=== PATIENT | female | born 1975 | race Caucasian/White ===

== ENCOUNTER 2016-04-18 22:01 | Observation (INO) | payer OTHER ==
[2016-04-18] MEDS ORDERED: methylPREDNISolone SOD SUCCI 125 MG/2 ML VIAL IV STA (22:11)
[2016-04-18] MEDS ORDERED: diphenhydrAMINE 50 MG/ML 1 ML VIAL IVP STA ×2 (22:11→23:47)
[2016-04-18] MEDS ORDERED: FAMOTIDINE 20 MG/2 ML VIAL IV STA (22:11)
[2016-04-18] MEDS ORDERED: EPINEPHrine 1 MG/ML 1 ML AMP IV ONE (22:13)
[2016-04-18] MEDS ORDERED: IPRATROPIUM-ALBUTEROL 3 ML NEB INHALATION STA (22:14)
[2016-04-18] MEDS ORDERED: ALBUTEROL NEBULIZED 2.5 MG/3 ML INHALATION STA (22:23)
[2016-04-18] MEDS ORDERED: DEXAMETHASONE SOD PHOSPHATE 10 MG/ML 1 ML VIAL IV STA (22:26)
--- NOTE | 2016-04-18 22:29 | ED ---
General Adult HPI - General Chief complaint: Allergic Reaction Stated complaint: allergix rx Time Seen by Provider: 04/18/16 22:05 Source: patient, RN notes reviewed Mode of arrival: ambulatory Limitations: no limitations - History of Present Illness Initial comments: [place] 40-year-old female who presents emergency room today by EMS, with chief complaint of ALLERGIC reaction. Patient does have an ALLERGY to eggs. Unsure if she came into contact with this. Did give herself an EpiPen. EMS also gave updraft. Patient does admit to tongue swelling. Denies any difficulty swallowing. Does admit that she had a recent reaction which she was intubated. Patient currently denies any other complaints. Patient states symptoms started after one hour ago. Patient denies any recent fever, chills, shortness of breath, chest pain, back pain, abdominal pain, nausea or vomiting, numbness or tingling, dysuria or hematuria, constipation or diarrhea, headaches or visual changes, or any other complaints. - Related Data Home Medications Medication Instructions Recorded Confirmed Acetaminophen [Tylenol 8 Hour] 650 mg PO Q4H PRN 04/18/16 04/18/16 Buprenorphine HCl [Subutex] 4 mg SL DIRECTED 04/18/16 04/18/16 Calcium/Magnesium 1000mg/500mg 1 tab PO TID PRN 04/18/16 04/18/16 Chlorpheniramine Maleate 4 mg PO Q4H PRN 04/18/16 04/18/16 [Chlor-Trimeton] Gabapentin [Neurontin] 600 mg PO QID 04/18/16 04/18/16 Hyoscyamine Sulfate [Levsin-Sl] 0.125 mg SL QID PRN 04/18/16 04/18/16 Ibuprofen [Motrin] 600 mg PO Q6HR PRN 04/18/16 04/18/16 Insulin NPH Hum/Reg Insulin Hm 10 unit SQ BID@0600,2200 04/18/16 04/18/16 [Humulin 70/30 Kwikpen] Insulin Regular [HumuLIN R] See Protocol SQ ACHS 04/18/16 04/18/16 LORazepam [Ativan] 0.5 - 1 mg PO DIRECTED PRN MDD 04/18/16 04/18/16 SEE COMMENTS Loperamide [Imodium] 4 mg PO QID PRN 04/18/16 04/18/16 Multivitamins, Thera [Multivitamin] 1 tab PO DAILY 04/18/16 04/18/16 Ondansetron HCl [Zofran] 8 mg PO Q6H PRN 04/18/16 04/18/16 Ondansetron [Zofran] 4 mg IM Q6H PRN 04/18/16 04/18/16 Pantoprazole Sodium [Protonix] 20 mg PO DAILY@0600 04/18/16 04/18/16 Sucralfate [Carafate] 1 gm PO ACHS 04/18/16 04/18/16 Thiamine [Vitamin B-1] 100 mg PO DAILY 04/18/16 04/18/16 Trimethobenzamide [Tigan] 200 mg IM Q6HR PRN 04/18/16 04/18/16 Trimethobenzamide [Tigan] 300 mg PO Q6H PRN 04/18/16 04/18/16 busPIRone HCl [Buspar] 10 mg PO TID PRN 04/18/16 04/18/16 cloNIDine HCL [Catapres] 0.1 mg PO BID@0600,1730 04/18/16 04/18/16 traZODone HCL 300 mg PO HS@2200 04/18/16 04/18/16 Allergies Allergy/AdvReac Type Severity Reaction Status Date / Time egg Allergy Severe Swelling Verified 04/18/16 22:25 ciprofloxacin [From Cipro] Allergy Unknown Verified 04/18/16 22:25 Fish Containing Products Allergy Unknown Verified 04/18/16 22:25 [Fish] prochlorperazine Allergy Unknown Verified 04/18/16 22:25 [From Compazine] Review of Systems ROS Statement: Those systems with pertinent positive or pertinent negative responses have been documented in the HPI. ROS Other: All systems not noted in ROS Statement are negative. Past Medical History Past Medical History: Diabetes Mellitus, Hypertension Additional Past Medical History / Comment(s): Opiate dependence History of Any Multi-Drug Resistant Organisms: None Reported Past Surgical History: Unable to Obtain Past Psychological History: No Psychological Hx Reported Smoking Status: Never smoker Past Alcohol Use History: None Reported Past Drug Use History: Opiates, Prescription Drug Abuse General Exam - General Exam Comments Initial Comments: General: The patient is awake and alert, in mild distress. Eye: Pupils are equal, round and reactive to light, extra-ocular movements are intact. No nystagmus. There is normal conjunctiva bilaterally. No signs of icterus. Ears, nose, mouth and throat: There are moist mucous membranes and no oral lesions. Moderate swelling. holding Secretions and able to swallow. Neck: The neck is supple, there is no tenderness or JVD. Cardiovascular: There is a regular rate and rhythm. No murmur, rub or gallop is appreciated. Respiratory: Lungs are clear to auscultation, respirations are non-labored, breath sounds are equal. No wheezes, stridor, rales, or rhonchi. Gastrointestinal: Soft, non-distended, non-tender abdomen without masses or organomegaly noted. There is no rebound or guarding present. No CVA tenderness. Musculoskeletal: Normal ROM, no tenderness. Strength 5/5. Sensation intact. Pulses equal bilaterally 2+. Neurological: A&O x 3. CN II-XII intact, There are no obvious motor or sensory deficits. Coordination appears grossly intact. Speech is normal. Skin: Skin is warm and dry and no rashes or lesions are noted. Psychiatric: Cooperative, appropriate mood & affect, normal judgment. Limitations: no limitations Course Vital Signs 04/18/16 04/18/16 04/18/16 22:05 22:20 22:24 Temperature 98 F Pulse Rate 125 H 121 H 120 H Respiratory 24 20 Rate Blood Pressure 150/84 157/85 O2 Sat by Pulse 100 100 Oximetry 04/18/16 04/18/16 04/18/16 22:35 22:37 22:48 Temperature Pulse Rate 113 H 117 H 113 H Respiratory 18 20 Rate Blood Pressure 154/73 128/63 O2 Sat by Pulse 100 97 Oximetry - Reevaluation(s) Reevaluation #1: 04/18/16 22:15 Patient seen here in the emergency room does show moderate distress with moderate swelling. Case discussed and seen by attending Dr at bedside Dr Springer. 04/18/16 22:25 Patient received a dose of epinephrine along with IV Solu-Medrol, Pepcid, Benadryl. Symptoms improving. Patient will be monitored closely. 04/18/16 22:37 Patient reexamined at this time shows no signs of distress. Nursing staff and respiratory at bedside currently on breathing treatment. Patient admits symptoms same but not progressing. Vitals Stable. 04/18/16 23:42 Patient reexamined at this time shows no signs of distress. Resting comfortably. Vitals stable. Patient will be admitted to Obs for continued monitoring. Disposition Clinical Impression: Allergic reaction Disposition: ADMITTED IP TO THIS HOSP Condition: Stable Referrals: None,Stated [Primary Care Provider] - 1-2 days Time of Disposition: 23:45
[2016-04-18] MEDS ORDERED: NALOXONE 0.4 MG/ML 1 ML VIAL IV PRN (23:46)
[2016-04-18] MEDS ORDERED: SODIUM CHLORIDE 0.9% 1,000 ML IV ONE (23:46)
[2016-04-18] MEDS ORDERED: EPINEPHrine 1 MG/ML 1 ML AMP SQ PRN (23:49)
[2016-04-19 00:20] VITALS: RESP 18; TEMP 97.7
[2016-04-19 07:29] LABS: Glucose,Whole Blood 151 mg/dL (75-99)
[2016-04-19 08:38] VITALS: BP 130/80; PULSE 116
[2016-04-19] MEDS ORDERED: FAMOTIDINE 20 MG/2 ML VIAL IV SCH (09:00)
[2016-04-19] MEDS ORDERED: predniSONE 50 MG TAB PO SCH (09:00)
[2016-04-19 09:47] LABS: Basophils % (A) 0 %; CH 24.9; CHCM 26.8; Eosinophils % (A) 0 %; HCT 34.1 % (34.0-46.0); HDW 2.85; HGB 9.4 gm/dL (11.4-16.0); Hypochromasia Marked; Luc # (Auto) 0.03; Luc % (Auto) 0; Lymphocytes # (A) 0.5 k/uL (1.0-4.8); Lymphocytes % (A) 4 %; MCH 25.7 pg (25.0-35.0); MCV 92.9 fL (80.0-100.0); Monocytes # (A) 0.2 k/uL (0-1.0); Monocytes % (A) 2 %; Neutrophils # (A) 11.3 k/uL (1.3-7.7); Neutrophils % (A) 94 %; RBC 3.67 m/uL (3.80-5.40); RDW 14.7 % (11.5-15.5); WBC 12.1 k/uL (3.8-10.6); WBC (Perox) 12.21
[2016-04-19 10:05] LABS: MCHC 27.7 g/dL (31.0-37.0)
[2016-04-19 10:09] LABS: Anion Gap 16 mmol/L; Blood Urea Nitrogen 10 mg/dL (7-17); Calcium 8.8 mg/dL (8.4-10.2); Carbon Dioxide 21 mmol/L (22-30); Chloride 104 mmol/L (98-107); Glucose 240 mg/dL (74-99); Non-African American GFR(MDRD) >60 (>60 ml/min/1.73 sqM); Sodium 141 mmol/L (137-145)
--- NOTE | 2016-04-19 10:57 | P.DS ---
Providers Date of admission: 04/19/16 00:05 Expected date of discharge: 04/19/16 Attending physician: Prashant Kaiser Primary care physician: Stated None Hospital Course: 40-year-old female who presented via the EMS system with a chief complaint of developing ALLERGIC reaction. Patient is not certain what she came into contact with that she did use an EpiPen patient is being treated at [facility] for opiate substance abuse according to the patient she ate something she was not sure patient was given an updraft by the emergency room. Patient stated her tongue swell. There was no difficulty in swallowing. Patient states that according to history she had a recent reaction similar but was intubated. Patient's symptoms resolved patient was given a dose of epinephrine in the emergency room along with IV Solu-Medrol Pepcid and Benadryl the symptoms improved patient was monitored closely admitted to the services of the attending where she continued to be monitored and on the morning of the the patient was felt to be stable back to baseline could be transferred back for further treatment at [facility] Impression discharge diagnosis Acute symptomatic ALLERGIC reaction present on admission ALLERGIC reaction to eggs History of opiate prescription drug abuse abuse The above dictated assessment and findings were discussed with dr kaiser . Impression and the plan of care have been dictated as directed. Leisa Osorio nurse practitioner acting as a scribe for dr kaiser Patient Condition at Discharge: Stable Plan - Discharge Summary Discharge Medication List Acetaminophen [Tylenol 8 Hour] 650 mg PO Q4H PRN 04/18/16 [History] Buprenorphine HCl [Subutex] 4 mg SL DIRECTED 04/18/16 [History] Calcium/Magnesium 1000mg/500mg 1 tab PO TID PRN 04/18/16 [History] Chlorpheniramine Maleate [Chlor-Trimeton] 4 mg PO Q4H PRN 04/18/16 [History] Gabapentin [Neurontin] 600 mg PO QID 04/18/16 [History] Hyoscyamine Sulfate [Levsin-Sl] 0.125 mg SL QID PRN 04/18/16 [History] Ibuprofen [Motrin] 600 mg PO Q6HR PRN 04/18/16 [History] Insulin NPH Hum/Reg Insulin Hm [humuLIN 70/30 Kwikpen] 10 unit SQ BID@0600,2200 04/18/16 [History] Insulin Regular [humuLIN R] See Protocol SQ ACHS 04/18/16 [History] LORazepam [Ativan] 0.5 - 1 mg PO DIRECTED PRN MDD SEE COMMENTS 04/18/16 [ History] Loperamide [Imodium] 4 mg PO QID PRN 04/18/16 [History] Multivitamins, Thera [Multivitamin] 1 tab PO DAILY 04/18/16 [History] Ondansetron HCl [Zofran] 8 mg PO Q6H PRN 04/18/16 [History] Ondansetron [Zofran] 4 mg IM Q6H PRN 04/18/16 [History] Pantoprazole Sodium [Protonix] 20 mg PO DAILY@0600 04/18/16 [History] Sucralfate [Carafate] 1 gm PO ACHS 04/18/16 [History] Thiamine [Vitamin B-1] 100 mg PO DAILY 04/18/16 [History] Trimethobenzamide [Tigan] 200 mg IM Q6HR PRN 04/18/16 [History] Trimethobenzamide [Tigan] 300 mg PO Q6H PRN 04/18/16 [History] busPIRone HCl [Buspar] 10 mg PO TID PRN 04/18/16 [History] cloNIDine HCL [Catapres] 0.1 mg PO BID@0600,1730 04/18/16 [History] traZODone HCL 300 mg PO HS@2200 04/18/16 [History] Follow up Appointment(s)/Referral(s): None,Stated [Primary Care Provider] - 1-2 days Prashant Kaiser MD [STAFF PHYSICIAN] - 1 Week Activity/Diet/Wound Care/Special Instructions: Patient is to return to [facility] Discharge Disposition: OTHER INSTITUTION NOT DEFINED
[2016-04-19 12:08] LABS: Glucose,Whole Blood 206 mg/dL (75-99)
--- NOTE | 2016-04-19 14:12 | HP ---
DATE OF ADMISSION: CHIEF COMPLAINT: Allergic reaction. HISTORY OF PRESENT ILLNESS: This is the first known admission for this 40-year-old G2, P2, A0 white female. She is allergic to EGGS. She has known this for some time. She was eating something that probably contained EGG and she came to the emergency room with angioneurotic edema. She was treated with steroids and antihistamines and is doing fairly well. REVIEW OF SYSTEMS: She has had no other complaints or problems. Past medical history, family history, and personal and social histories reveal that she is on insulin for her diabetes and has it fairly well under control. She is allergic to CIPRO and COMPAZINE. Surgically, she has had an appendectomy, two C-sections and a cholecystectomy. She does not smoke. PHYSICAL EXAMINATION: Blood pressure 135/82 with a pulse of 73, respirations of 35 and she is afebrile. GENERAL: She appeared to be well developed, well nourished, in no acute distress. Skin color is normal. Skin is warm and dry. Lymph nodes are not enlarged. Head, ears, eyes, nose, mouth, and throat were normal. Neck veins not distended. Thyroid is not enlarged. Chest is clear. Cardiac exam is normal. ABDOMEN: Soft, nontender. EXTREMITIES: Normal. NEUROLOGICAL: She is intact. IMPRESSION: 1. Angioneurotic edema secondary to ingestion of EGG. 2. Insulin-dependent diabetes mellitus. 3. Prescription drug addiction PLAN: 1. Bed rest. 2. IV fluids. 3. Steroids and antihistamines. 4. Probably home later today as arranged by the nurse practitioner. She wants to go to [place]. It is not clear if she came from [place] or not.
[2016-04-20] MEDS ORDERED: FAMOTIDINE 20 MG TAB PO SCH (09:00)
== END 2016-04-19 14:24 | disposition other institution (70) ==
LOC: EC 22:01 → 4MS4W 04-19 00:05
PROVIDERS: ADMIT Family Medicine; ATTEND Family Medicine
DX: T78.3XXA Angioneurotic edema, initial encounter (principal); Z91.012 Allergy to eggs; I10 Essential (primary) hypertension; E11.9 Type 2 diabetes mellitus without complications; F19.20 Other psychoactive substance dependence, uncomplicated; Z79.899 Other long term (current) drug therapy; Z79.4 Long term (current) use of insulin; Z88.8 Allergy status to other drugs, medicaments and biological substances; Z88.1 Allergy status to other antibiotic agents; Z91.013 Allergy to seafood
CPT/HCPCS: 94640; 80048; 85025; 96374; 96376; 96375 ×4; 99285; G0378; J0171; J1200 ×2; J1100; J2930; J7512

== ENCOUNTER 2016-04-19 22:40 | Observation (INO) | payer OTHER ==
[2016-04-19] MEDS ORDERED: FAMOTIDINE 20 MG/2 ML VIAL IV STA (22:53)
[2016-04-19] MEDS ORDERED: EPINEPHrine 1 MG/ML 1 ML AMP IM STA (22:57)
--- NOTE | 2016-04-19 23:03 | ED ---
Allergic Reaction HPI - General Stated complaint: poss allergic reaction Time Seen by Provider: 04/19/16 22:47 Source: RN notes reviewed - History of Present Illness Initial Comments: Patient is a 40-year-old female with chief complaint of an ALLERGIC reaction to this neck that she ate well at [facility]. Patient reports that she was treated in emergency department for a similar episode yesterday and was admitted. She was discharges morning.. Patient reports that she ate a turkey sandwich with miracle upon it. Patient reports that she is ALLERGIC to eggs. Patient did not realize that they're eggs in any kind of miracle whip or mayonnaise condiment. Patient reports that shortly thereafter she started developing a rash in her tongue started to swell. She states that she initially gave herself 1 her EpiPen injection in her leg. EMS arrived and to give the patient 100 mg of Benadryl and at 125 Solu-Medrol. They report that patient's redness and itching is somewhat subsided after getting the medications. Patient reports that her tongue is still feeling somewhat swollen. Causing her having difficulty talking. She states that each time that she's had an exposure days as he came much worse. She reports that she had a be intubated approximately one month ago for similar reaction. - Related Data Home Medications Medication Instructions Recorded Confirmed Acetaminophen [Tylenol 8 Hour] 650 mg PO Q4H PRN 04/18/16 04/18/16 Buprenorphine HCl [Subutex] 4 mg SL DIRECTED 04/18/16 04/18/16 Calcium/Magnesium 1000mg/500mg 1 tab PO TID PRN 04/18/16 04/18/16 Chlorpheniramine Maleate 4 mg PO Q4H PRN 04/18/16 04/18/16 [Chlor-Trimeton] Gabapentin [Neurontin] 600 mg PO QID 04/18/16 04/18/16 Hyoscyamine Sulfate [Levsin-Sl] 0.125 mg SL QID PRN 04/18/16 04/18/16 Ibuprofen [Motrin] 600 mg PO Q6HR PRN 04/18/16 04/18/16 Insulin NPH Hum/Reg Insulin Hm 10 unit SQ BID@0600,2200 04/18/16 04/18/16 [humuLIN 70/30 Kwikpen] Insulin Regular [humuLIN R] See Protocol SQ ACHS 04/18/16 04/18/16 LORazepam [Ativan] 0.5 - 1 mg PO DIRECTED PRN MDD 04/18/16 04/18/16 SEE COMMENTS Loperamide [Imodium] 4 mg PO QID PRN 04/18/16 04/18/16 Multivitamins, Thera [Multivitamin] 1 tab PO DAILY 04/18/16 04/18/16 Ondansetron HCl [Zofran] 8 mg PO Q6H PRN 04/18/16 04/18/16 Ondansetron [Zofran] 4 mg IM Q6H PRN 04/18/16 04/18/16 Pantoprazole Sodium [Protonix] 20 mg PO DAILY@0600 04/18/16 04/18/16 Sucralfate [Carafate] 1 gm PO [facility] 04/18/16 04/18/16 Thiamine [Vitamin B-1] 100 mg PO DAILY 04/18/16 04/18/16 Trimethobenzamide [Tigan] 200 mg IM Q6HR PRN 04/18/16 04/18/16 Trimethobenzamide [Tigan] 300 mg PO Q6H PRN 04/18/16 04/18/16 busPIRone HCl [Buspar] 10 mg PO TID PRN 04/18/16 04/18/16 cloNIDine HCL [Catapres] 0.1 mg PO BID@0600,1730 04/18/16 04/18/16 traZODone HCL 300 mg PO HS@2200 04/18/16 04/18/16 Allergies Allergy/AdvReac Type Severity Reaction Status Date / Time egg Allergy Severe Swelling Verified 04/18/16 22:25 ciprofloxacin [From Cipro] Allergy Unknown Verified 04/18/16 22:25 Fish Containing Products Allergy Unknown Verified 04/18/16 22:25 [Fish] prochlorperazine Allergy Unknown Verified 04/18/16 22:25 [From Compazine] Review of Systems ROS Statement: Those systems with pertinent positive or pertinent negative responses have been documented in the HPI. ROS Other: All systems not noted in ROS Statement are negative. Past Medical History Past Medical History: Diabetes Mellitus, Hypertension Additional Past Medical History / Comment(s): Opiate dependence History of Any Multi-Drug Resistant Organisms: None Reported Past Surgical History: Unable to Obtain Past Psychological History: No Psychological Hx Reported Smoking Status: Never smoker Past Alcohol Use History: None Reported Past Drug Use History: Opiates, Prescription Drug Abuse - Past Family History Mother History Unknown: Yes Family Medical History: No Reported History General Exam General appearance: alert, in no apparent distress Head exam: Present: atraumatic, normocephalic, normal inspection Eye exam: Present: normal appearance, PERRL, EOMI. Absent: scleral icterus, conjunctival injection, periorbital swelling ENT exam: Present: normal exam, mucous membranes moist, TM's normal bilaterally. Absent: normal oropharynx (Patient has evidence of swollen tongue. ) Neck exam: Present: normal inspection. Absent: tenderness, meningismus, lymphadenopathy Respiratory exam: Present: normal lung sounds bilaterally. Absent: respiratory distress, wheezes, rales, rhonchi, stridor Cardiovascular Exam: Present: regular rate, normal rhythm, normal heart sounds. Absent: systolic murmur, diastolic murmur, rubs, gallop, clicks GI/Abdominal exam: Present: soft, normal bowel sounds. Absent: distended, tenderness, guarding, rebound, rigid Extremities exam: Present: normal inspection, full ROM, normal capillary refill. Absent: tenderness, pedal edema, joint swelling, calf tenderness Back exam: Present: normal inspection Neurological exam: Present: alert, oriented X3, CN II-XII intact Psychiatric exam: Present: normal affect, normal mood Skin exam: Present: warm, dry, intact, normal color, erythema (Patient's chest has diffuse wheals and is erythematous. Patient scratching her skin.). Absent : rash Course Vital Signs 04/19/16 23:32 Temperature 97.6 F Pulse Rate 125 H Respiratory 20 Rate Blood Pressure 144/76 O2 Sat by Pulse 95 Oximetry - Reevaluation(s) Reevaluation #1: 04/19/16 23:21 Patient was reevaluated at this time is stating that she is feeling itchy. Medical Decision Making - Medical Decision Making Patient is a 40-year-old female with chief complaint of ALLERGIC reaction after ingesting a sandwich with [place]. Patient was admitted yesterday for similar reaction. She reports that she's been intubated in the past. Patient arrives to the emergency department after dose of IM epinephrine, and EMS did dose IV Solu-Medrol and Benadryl. Patient arrives to the emergency department and EMS states that she her redness has subsided. Patient has no wheezing at this time. She does have significant swelling of the tongue. Patient was given a subsequent dose of epinephrine and Pepcid in the emergency department. Patient will be admitted at this time for significant tongue swelling and monitoring. Patient will continue to do Benadryl via IV. I discussed with the patient that she needs to be very diligent about any food that she ingested could possibly be made with aches. Patient agrees to treatment plan. Disposition Clinical Impression: Allergic reaction Disposition: ADMITTED IP TO THIS HOSP Condition: Stable Referrals: None,Stated [Primary Care Provider] - 1-2 days Time of Disposition: 23:49
[2016-04-19] MEDS ORDERED: NALOXONE 0.4 MG/ML 1 ML VIAL IV PRN (23:49)
[2016-04-19] MEDS ORDERED: EPINEPHrine 1 MG/ML 1 ML AMP SQ PRN (23:55)
[2016-04-19] MEDS: SODIUM CHLORIDE 0.9% 1,000 ML IV SCH (23:55)
[2016-04-20 01:11] LABS: Glucose,Whole Blood 149 mg/dL (75-99)
[2016-04-20] MEDS: diphenhydrAMINE 50 MG/ML 1 ML VIAL IVP SCH ×4 (01:13→18:11)
[2016-04-20 01:32] VITALS: BMI 23.3
[2016-04-20 07:53] LABS: Glucose,Whole Blood 149 mg/dL (75-99)
[2016-04-20] MEDS: SODIUM CHLORIDE 0.9% 1,000 ML IV SCH ×2 (08:38→18:10)
[2016-04-20] MEDS: FAMOTIDINE 20 MG TAB PO SCH ×2 (08:39→21:41)
[2016-04-20 12:05] LABS: Glucose,Whole Blood 131 mg/dL (75-99)
[2016-04-20 17:16] LABS: Glucose,Whole Blood 126 mg/dL (75-99)
--- NOTE | 2016-04-20 18:32 | HP ---
DATE OF ADMISSION: 04/20/2016 CHIEF COMPLAINT: Repeat allergic reaction. HISTORY OF PRESENT ILLNESS: This 40-year-old white female left the hospital, went home or back to [place] immediately something was ( ) with it again and restarted her angioneurotic edema. She was brought to the hospital and is doing better. REVIEW OF SYSTEMS: Otherwise unremarkable. Past medical history, family history, and personal and social histories are all otherwise unremarkable or unchanged. PHYSICAL EXAMINATION: VITAL SIGNS: All of her vital signs are normal. She is awake and alert. She has no rash, urticaria or angioneurotic edema. HEENT: Head, ears, eyes, mouth, and throat are normal. CHEST: Clear. CARDIAC: Normal. ABDOMEN: Soft, nontender. EXTREMITIES: Normal. IMPRESSION: Angioneurotic edema to eggs. PLAN: Steroids and antihistamines until she is stable enough to go back to [place].
[2016-04-20] MEDS ORDERED: LOPERAMIDE 2 MG CAP PO PRN (20:03)
[2016-04-20] MEDS ORDERED: busPIRone HCl 10 MG TAB PO PRN (20:03)
[2016-04-20] MEDS ORDERED: ACETAMINOPHEN TAB 325 MG TAB PO PRN (20:03)
[2016-04-20] MEDS ORDERED: ONDANSETRON 4 MG/2 ML VIAL IM PRN (20:03)
[2016-04-20] MEDS ORDERED: LORazepam 1 MG TAB PO PRN (20:03)
[2016-04-20] MEDS ORDERED: IBUPROFEN 600 MG TAB PO PRN (20:03)
[2016-04-20] MEDS ORDERED: NON-FORMULARY DRUG (Calcium/Magnesium 1000mg/500mg 1 TAB) PO PRN (20:03)
[2016-04-20 21:22] LABS: Glucose,Whole Blood 96 mg/dL (75-99)
[2016-04-20] MEDS: SUCRALFATE 1 GM TAB PO SCH (21:41)
[2016-04-20] MEDS: INSULIN LISPRO (humaLOG) 300 UNIT/3 ML VIAL SQ SCH (21:41)
[2016-04-20] MEDS: GABAPENTIN 300 MG CAP PO SCH (21:41)
[2016-04-21] MEDS: diphenhydrAMINE 50 MG/ML 1 ML VIAL IVP SCH ×4 (00:21→17:02)
[2016-04-21] MEDS: SODIUM CHLORIDE 0.9% 1,000 ML IV SCH ×3 (00:22→20:34)
[2016-04-21] MEDS: LORazepam 0.5 MG TAB PO PRN ×2 (01:36→20:41)
[2016-04-21] MEDS: PANTOPRAZOLE 40 MG TABLET PO SCH (06:33)
[2016-04-21] MEDS: cloNIDine HCL 0.1 MG TAB PO SCH ×2 (06:33→17:02)
[2016-04-21 07:10] LABS: Glucose,Whole Blood 89 mg/dL (75-99)
[2016-04-21] MEDS: SUCRALFATE 1 GM TAB PO SCH ×4 (08:01→20:33)
[2016-04-21] MEDS: INSULIN LISPRO (humaLOG) 300 UNIT/3 ML VIAL SQ SCH ×4 (08:01→20:35)
[2016-04-21] MEDS: FAMOTIDINE 20 MG TAB PO SCH ×2 (08:01→20:33)
[2016-04-21] MEDS: GABAPENTIN 300 MG CAP PO SCH ×4 (08:01→20:33)
[2016-04-21 10:53] LABS: Hemoglobin A1C 5.5 % (4.2-6.1)
[2016-04-21] MEDS: THIAMINE 100 MG TAB PO SCH (11:45)
[2016-04-21] MEDS: MULTIVITAMINS, THERA 1 EACH TAB PO SCH (11:45)
[2016-04-21 11:56] LABS: Glucose,Whole Blood 125 mg/dL (75-99)
[2016-04-21] MEDS: predniSONE 20 MG TAB PO SCH ×2 (16:56→20:34)
[2016-04-21 16:59] LABS: Glucose,Whole Blood 71 mg/dL (75-99)
[2016-04-21 20:25] LABS: Glucose,Whole Blood 136 mg/dL (75-99)
--- NOTE | 2016-04-21 22:36 | PN ---
CHIEF COMPLAINT: Angina and neurotic edema. HISTORY OF PRESENT ILLNESS: This patient started to get a few more hives, itching but other than that she is doing well. PHYSICAL EXAMINATION: CHEST: Clear. CARDIAC: Normal. ABDOMEN: Soft, nontender. IMPRESSION: Angioneurotic edema. PLAN: Probably back to [place] tomorrow.
[2016-04-22] MEDS: diphenhydrAMINE 50 MG CAP PO PRN ×2 (00:49→10:11)
[2016-04-22] MEDS: LORazepam 1 MG TAB PO PRN ×2 (03:45→10:36)
[2016-04-22] MEDS: cloNIDine HCL 0.1 MG TAB PO SCH (06:34)
[2016-04-22] MEDS: PANTOPRAZOLE 40 MG TABLET PO SCH (06:34)
[2016-04-22 07:36] LABS: Glucose,Whole Blood 110 mg/dL (75-99)
[2016-04-22] MEDS: INSULIN LISPRO (humaLOG) 300 UNIT/3 ML VIAL SQ SCH ×2 (07:41→13:40)
[2016-04-22] MEDS: GABAPENTIN 300 MG CAP PO SCH ×2 (07:42→12:10)
[2016-04-22] MEDS: FAMOTIDINE 20 MG TAB PO SCH (07:43)
[2016-04-22] MEDS: predniSONE 20 MG TAB PO SCH (07:43)
[2016-04-22] MEDS: SUCRALFATE 1 GM TAB PO SCH ×2 (07:43→12:10)
[2016-04-22 08:43] VITALS: BP 124/70; PULSE 87; RESP 19; TEMP 97.3
--- NOTE | 2016-04-22 11:26 | P.DS ---
Providers Date of admission: 04/20/16 00:15 Expected date of discharge: 04/22/16 Attending physician: Prashant Kaiser Primary care physician: Stated None Hospital Course: patient is a 40-year-old female with chief complaint of an ALLERGIC reaction to egg that she ate well at [facility] facility. Patient reports that she was treated in emergency department for a similar episode yesterday and was admitted. She was discharges morning.. Patient reports that she ate a turkey sandwich with miracle upon it. Patient reports that she is ALLERGIC to eggs. Patient did not realize that they're eggs in any kind of miracle whip or mayonnaise condiment. Patient reports that shortly thereafter she started developing a rash in her tongue started to swell. She states that she initially gave herself 1 her EpiPen injection in her leg. EMS arrived and to give the patient 100 mg of Benadryl and at 125 Solu-Medrol. They report that patient's redness and itching is somewhat subsided after getting the medications. Patient reports that her tongue is still feeling somewhat swollen. Causing her having difficulty talking. She states that each time that she's had an exposure days as he came much worse. She reports that she had a be intubated approximately one month ago for similar reaction. Patient was seen in the morning of the was felt to be medically stable and appropriate proceed with a discharge to home. With stress to the patient to avoid eating eggs patient is to be transferred back to [facility] patient had been counseled at length about being very diligent to avoid any foods that she eats that could possibly have eggs Impression discharge diagnosis No ALLERGIC reaction to eggs History of an ALLERGY to eggs Acute symptomatic ALLERGIC response to an egg product present on admission swollen tongue History of opiate prescription drug abuse currently at [facility] for treatment Reoccurring episode of ALLERGIC reaction to egg just discharged on April 19 returned same day after eating a product that had eggs in it The above dictated assessment and findings were discussed with dr awilda Connelly and the plan of care have been dictated as directed. Leisa Osorio nurse practitioner acting as a scribe for dr kaiser Patient Condition at Discharge: Stable Plan - Discharge Summary Discharge Medication List Acetaminophen [Tylenol 8 Hour] 650 mg PO Q4H PRN 04/18/16 [History] Buprenorphine HCl [Subutex] 4 mg SL DIRECTED 04/18/16 [History] Calcium/Magnesium 1000mg/500mg 1 tab PO TID PRN 04/18/16 [History] Chlorpheniramine Maleate [Chlor-Trimeton] 4 mg PO Q4H PRN 04/18/16 [History] Gabapentin [Neurontin] 600 mg PO QID 04/18/16 [History] Hyoscyamine Sulfate [Levsin-Sl] 0.125 mg SL QID PRN 04/18/16 [History] Ibuprofen [Motrin] 600 mg PO Q6HR PRN 04/18/16 [History] Insulin NPH Hum/Reg Insulin Hm [humuLIN 70/30 Kwikpen] 10 unit SQ BID@0600,2200 04/18/16 [History] Insulin Regular [humuLIN R] See Protocol SQ ACHS 04/18/16 [History] LORazepam [Ativan] 0.5 - 1 mg PO DIRECTED PRN MDD SEE COMMENTS 04/18/16 [ History] Loperamide [Imodium] 4 mg PO QID PRN 04/18/16 [History] Multivitamins, Thera [Multivitamin] 1 tab PO DAILY 04/18/16 [History] Ondansetron HCl [Zofran] 8 mg PO Q6H PRN 04/18/16 [History] Ondansetron [Zofran] 4 mg IM Q6H PRN 04/18/16 [History] Pantoprazole Sodium [Protonix] 20 mg PO DAILY@0600 04/18/16 [History] Sucralfate [Carafate] 1 gm PO ACHS 04/18/16 [History] Thiamine [Vitamin B-1] 100 mg PO DAILY 04/18/16 [History] Trimethobenzamide [Tigan] 200 mg IM Q6HR PRN 04/18/16 [History] Trimethobenzamide [Tigan] 300 mg PO Q6H PRN 04/18/16 [History] busPIRone HCl [Buspar] 10 mg PO TID PRN 04/18/16 [History] cloNIDine HCL [Catapres] 0.1 mg PO BID@0600,1730 04/18/16 [History] traZODone HCL 300 mg PO HS@2200 04/18/16 [History] Follow up Appointment(s)/Referral(s): None,Stated [Primary Care Provider] - 1-2 days [place],Prashant G, MD [STAFF PHYSICIAN] - 1 Week Activity/Diet/Wound Care/Special Instructions: To return to [facility] for continued treatment Avoid foods that have eggs Discharge Disposition: OTHER INSTITUTION NOT DEFINED
[2016-04-22] MEDS: THIAMINE 100 MG TAB PO SCH (12:10)
[2016-04-22] MEDS: MULTIVITAMINS, THERA 1 EACH TAB PO SCH (12:10)
[2016-04-22 12:25] LABS: Glucose,Whole Blood 122 mg/dL (75-99)
--- NOTE | 2016-04-22 14:48 | PN ---
CHIEF COMPLAINT: Food allergy to egg with anaphylactic reaction. HISTORY OF PRESENT ILLNESS: This lady is doing well and she has had no problems and she will go back to [place] today. PHYSICAL EXAM: Skin is clear and the chest is clear. Cardiac exam is normal. IMPRESSION: Angioneurotic edema secondary to ingestion of egg. She will go back to [place] Today and this will be arranged by the nurse practitioner.
== END 2016-04-22 15:20 ==
LOC: EC 22:40 → 4MS4W 04-20 00:15
PROVIDERS: ADMIT Family Medicine; ATTEND Family Medicine
DX: T78.3XXA Angioneurotic edema, initial encounter (principal); T78.08XA Anaphylactic reaction due to eggs, initial encounter; Z91.012 Allergy to eggs; E11.9 Type 2 diabetes mellitus without complications; I10 Essential (primary) hypertension; Z79.899 Other long term (current) drug therapy; Z79.4 Long term (current) use of insulin; Z88.8 Allergy status to other drugs, medicaments and biological substances; Z88.1 Allergy status to other antibiotic agents; Z91.013 Allergy to seafood
CPT/HCPCS: 83036; 96374; 96372; 96361; 99285; G0378 ×3; J0171; J1200 ×2; J7512 ×2; 96375; 96376

== ENCOUNTER 2016-04-22 23:16 | Observation (INO) | payer OTHER ==
[2016-04-22] MEDS ORDERED: FAMOTIDINE 20 MG/2 ML VIAL IV STA (23:39)
[2016-04-22] MEDS ORDERED: diphenhydrAMINE 50 MG/ML 1 ML VIAL IVP STA (23:39)
[2016-04-22] MEDS ORDERED: SODIUM CHLORIDE 0.9% 1,000 ML IV STA ×2 (23:39)
--- NOTE | 2016-04-23 01:00 | ED ---
Allergic Reaction HPI - General Chief complaint: Allergic Reaction Stated complaint: Allergic Reaction Time Seen by Provider: 04/22/16 23:23 Source: patient Mode of arrival: ambulatory Limitations: no limitations - History of Present Illness Initial Comments: Noticed ALLERGIC reaction today she does have a history of ALLERGIC reaction past she noticed her tongue was swollen and large she was also short winded. Some tightening in the throat also noticed some hives all over his quite itchy as well. She does have EpiPen prescription she gave herself a Shot and then in the ambulance she had Benadryl IV and Solu-Medrol by the time she arrived ER her symptoms have a large extent on the tongue was still swollen and she is bit short winded. No other complaints - Related Data Home Medications Medication Instructions Recorded Confirmed Acetaminophen [Tylenol 8 Hour] 650 mg PO Q4H PRN 04/18/16 04/20/16 Buprenorphine HCl [Subutex] 4 mg SL DIRECTED 04/18/16 04/20/16 Calcium/Magnesium 1000mg/500mg 1 tab PO TID PRN 04/18/16 04/20/16 Chlorpheniramine Maleate 4 mg PO Q4H PRN 04/18/16 04/20/16 [Chlor-Trimeton] Gabapentin [Neurontin] 600 mg PO QID 04/18/16 04/20/16 Hyoscyamine Sulfate [Levsin-Sl] 0.125 mg SL QID PRN 04/18/16 04/20/16 Ibuprofen [Motrin] 600 mg PO Q6HR PRN 04/18/16 04/20/16 Insulin NPH Hum/Reg Insulin Hm 10 unit SQ BID@0600,2200 04/18/16 04/20/16 [humuLIN 70/30 Kwikpen] Insulin Regular [humuLIN R] See Protocol SQ ACHS 04/18/16 04/20/16 LORazepam [Ativan] 0.5 - 1 mg PO DIRECTED PRN MDD 04/18/16 04/20/16 SEE COMMENTS Loperamide [Imodium] 4 mg PO QID PRN 04/18/16 04/20/16 Multivitamins, Thera [Multivitamin] 1 tab PO DAILY 04/18/16 04/20/16 Ondansetron HCl [Zofran] 8 mg PO Q6H PRN 04/18/16 04/20/16 Ondansetron [Zofran] 4 mg IM Q6H PRN 04/18/16 04/20/16 Pantoprazole Sodium [Protonix] 20 mg PO DAILY@0600 04/18/16 04/20/16 Sucralfate [Carafate] 1 gm PO ACHS 04/18/16 04/20/16 Thiamine [Vitamin B-1] 100 mg PO DAILY 04/18/16 04/20/16 Trimethobenzamide [Tigan] 200 mg IM Q6HR PRN 04/18/16 04/20/16 Trimethobenzamide [Tigan] 300 mg PO Q6H PRN 04/18/16 04/20/16 busPIRone HCl [Buspar] 10 mg PO TID PRN 04/18/16 04/20/16 cloNIDine HCL [Catapres] 0.1 mg PO BID@0600,1730 04/18/16 04/20/16 traZODone HCL 300 mg PO HS@2200 04/18/16 04/20/16 Allergies Allergy/AdvReac Type Severity Reaction Status Date / Time egg Allergy Severe Anaphylaxis Verified 04/22/16 23:26 Fish Containing Products Allergy Severe Anaphylaxis Verified 04/22/16 23:26 [Fish] prochlorperazine Allergy Severe Dystonia Verified 04/22/16 23:26 [From Compazine] ciprofloxacin [From Cipro] Allergy Intermediate Rash/Hives Verified 04/22/16 23: 26 sulfa Allergy Severe Rash/Hives Uncoded 04/22/16 23:26 Review of Systems ROS Statement: Those systems with pertinent positive or pertinent negative responses have been documented in the HPI. ROS Other: All systems not noted in ROS Statement are negative. 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 She has been there 6 days. Past Drug Use History: Heroin, Opiates, Prescription Drug Abuse - Past Family History Mother History Unknown: Yes Family Medical History: No Reported History General Exam - General Exam Comments Initial Comments: General: The patient is awake and alert, in no distress, and does not appear acutely ill. She is anxious Skin: Skin is warm and dry, to the EMS he had a hives on arrival I didn't notice any hives by nose was quite red rather it was inflamed Eye: Pupils are equal, round and reactive to light, extra-ocular movements are intact; there is normal conjunctiva bilaterally. Ears, nose, mouth and throat: Tongue is still swollen and no lip swelling no airway compromise noticed Neck: The neck is supple, there is no tenderness Cardiovascular: There is a regular rate and rhythm. No murmur, rub or gallop is appreciated. Respiratory: To auscultation bilateral, no wheezing noticed Gastrointestinal: Soft, non-distended, non-tender abdomen without masses or organomegaly noted. There is no rebound or guarding present. Bowel sounds are unremarkable. Back: There is no tenderness to palpation in the midline. There is no obvious deformity. Musculoskeletal: Normal ROM, no tenderness, There is no pedal edema. There is no calf tenderness or swelling. No cords were appreciated. Neurological: CN II-XII intact, Cranial nerves III through XII are intact. There are no obvious motor or sensory deficits. Coordination appears grossly intact. Speech is normal. Psychiatric: Cooperative, appropriate mood & affect, normal judgment. Limitations: no limitations Course Vital Signs 04/22/16 04/22/16 23:26 23:33 Temperature 97.9 F Pulse Rate 121 H Respiratory 18 Rate Blood Pressure 148/82 O2 Sat by Pulse 100 100 Oximetry She had multiple episodes of ALLERGIC reaction the last 3 days she was just discharged from the hospital today and now she is nervous gone back to [facility] considering that appeared to Dr. Merritt was admitting doctor this time cervical watch her overnight Disposition Clinical Impression: Allergic reaction Disposition: ADMITTED IP TO THIS HOSP Condition: Good
[2016-04-23] MEDS ORDERED: NALOXONE 0.4 MG/ML 1 ML VIAL IV PRN (01:01)
[2016-04-23] MEDS ORDERED: busPIRone HCl 10 MG TAB PO PRN (01:09)
[2016-04-23] MEDS ORDERED: NON-FORMULARY DRUG (Calcium/Magnesium 1000mg/500mg 1 TAB) PO PRN (01:09)
[2016-04-23] MEDS ORDERED: LOPERAMIDE 2 MG CAP PO PRN (01:09)
[2016-04-23] MEDS ORDERED: IBUPROFEN 600 MG TAB PO PRN (01:09)
[2016-04-23] MEDS ORDERED: ACETAMINOPHEN TAB 325 MG TAB PO PRN (01:09)
[2016-04-23] MEDS ORDERED: TRIMETHOBENZAMIDE 100 MG/ML 2 ML VIAL IM PRN (01:09)
[2016-04-23] MEDS ORDERED: LORazepam 1 MG TAB PO PRN (01:09)
[2016-04-23] MEDS ORDERED: HYOSCYAMINE SULFATE 0.125 MG TAB PO PRN (01:09)
[2016-04-23] MEDS ORDERED: ONDANSETRON ODT 8 MG TAB.RAPDIS PO PRN (01:09)
[2016-04-23] MEDS ORDERED: TRIMETHOBENZAMIDE 300 MG CAP PO PRN (01:09)
[2016-04-23] MEDS ORDERED: diphenhydrAMINE 25 MG CAP PO PRN (01:09)
[2016-04-23] MEDS ORDERED: BUPRENORPHINE HCL 4 MG SL SCH (01:15)
[2016-04-23] MEDS ORDERED: diphenhydrAMINE 50 MG/ML 1 ML VIAL IVP PRN (01:15)
[2016-04-23] MEDS ORDERED: LORATADINE 10 MG TAB PO PRN (01:16)
[2016-04-23] MEDS ORDERED: LORATADINE 10 MG TAB PO STA (01:17)
[2016-04-23] MEDS ORDERED: PANTOPRAZOLE 40 MG TABLET PO SCH (06:00)
[2016-04-23] MEDS ORDERED: cloNIDine HCL 0.1 MG TAB PO SCH (06:00)
[2016-04-23] MEDS ORDERED: INSULIN NPH/REG INSULIN 70/30 300 UNIT/3 ML VIAL SQ SCH (06:00)
[2016-04-23 07:00] LABS: Glucose,Whole Blood 124 mg/dL (75-99)
[2016-04-23 07:35] VITALS: BP 112/65; PULSE 80; RESP 18; TEMP 96
[2016-04-23] MEDS: GABAPENTIN 300 MG CAP PO SCH ×2 (08:24→13:11)
[2016-04-23] MEDS: SUCRALFATE 1 GM TAB PO SCH ×2 (08:25→13:12)
[2016-04-23] MEDS ORDERED: methylPREDNISolone SOD SUCCI 125 MG/2 ML VIAL IV SCH (09:00)
[2016-04-23] MEDS ORDERED: FAMOTIDINE 20 MG/2 ML VIAL IV SCH (09:00)
[2016-04-23] MEDS ORDERED: THIAMINE 100 MG TAB PO SCH (09:00)
[2016-04-23] MEDS ORDERED: methylPREDNISolone 4 MG TAB TAPER PO SCH (09:30)
[2016-04-23] MEDS ORDERED: INSULIN GLARGINE 100 UNIT/ML 10 ML VIAL SQ SCH (09:30)
[2016-04-23 11:24] LABS: Glucose,Whole Blood 208 mg/dL (75-99)
--- NOTE | 2016-04-23 11:54 | P.DS ---
Providers Date of admission: 04/23/16 01:14 Expected date of discharge: 04/23/16 Attending physician: Prashant Kaiser Primary care physician: Stated None Hospital Course: This is a 40-year-old female who has been hospitalized 3 times in the last 72 hours from [facility] were patient is undergoing rehab treatment for prescription opiate abuse. The last 2 prior admissions patient was treated for an ALLERGIC reaction patient stated that she is ALLERGIC to eggs. Apparently each visit patient had been exposed aches and had an ALLERGIC reaction in the form of felt that her throat was sweat when and had hives all over. This admission patient return to [facility] stated that she's having ALLERGIC reaction she thinks from using her regular insulin which she has taken for the last several weeks. Patient reports presented again to the emergency room was admitted this time to the attending. Once again reported having tightening of the throat hives all over as well as itching did use her EpiPen gave herself a shot activated the ambulance was given IV Benadryl and Solu-Medrol by the time the patient arrived in the emergency room time was swollen and still is slightly short of breath. Patient had been advised to stay away from products that have a get him in the regular insulin was stopped patient was given a prescription for Lantus and patient's symptoms had significantly resolved patient was felt to be appropriate to be transferred back to [facility] at the time of discharge the vitals were stable there was no rash no itching no difficulty in swallowing the tongue was not swollen patient was tolerating a diet complex human resources manager and licensed social worker did contact [facility] who indicated they would pick patient up and transfer patient back to the to the area she was from in [facility] Impression discharge diagnose Multiple episodes of ALLERGIC reaction within the last 72 hours 3 admissions Reoccurring episodes of ALLERGIC reaction to egg just discharged on April 19 and April 20 History of opiate prescription drug abuse currently is [facility] for treatment alleged ALLERGIC reaction to regular insulin Type 2 diabetes insulin requiring hemoglobin A1c 5.5 Depressive disorder nonspecified ALLERGIC reaction to eggs The above dictated assessment and findings were discussed with dr addie Connelly and the plan of care have been dictated as directed. Leisa Osorio nurse practitioner acting as a scribe for dr kaiser Patient Condition at Discharge: Good Plan - Discharge Summary New Discharge Prescriptions: Insulin Glargine [Lantus] 8 unit SQ QAM #1 vial Discharge Medication List Acetaminophen [Tylenol 8 Hour] 650 mg PO Q4H PRN 04/18/16 [History] Buprenorphine HCl [Subutex] 4 mg SL DIRECTED 04/18/16 [History] Calcium/Magnesium 1000mg/500mg 1 tab PO TID PRN 04/18/16 [History] Chlorpheniramine Maleate [Chlor-Trimeton] 4 mg PO Q4H PRN 04/18/16 [History] Gabapentin [Neurontin] 600 mg PO QID 04/18/16 [History] Hyoscyamine Sulfate [Levsin-Sl] 0.125 mg SL QID PRN 04/18/16 [History] Ibuprofen [Motrin] 600 mg PO Q6HR PRN 04/18/16 [History] Insulin Regular [humuLIN R] See Protocol SQ ACHS 04/18/16 [History] LORazepam [Ativan] 0.5 - 1 mg PO DIRECTED PRN MDD SEE COMMENTS 04/18/16 [ History] Loperamide [Imodium] 4 mg PO QID PRN 04/18/16 [History] Multivitamins, Thera [Multivitamin] 1 tab PO DAILY 04/18/16 [History] Ondansetron HCl [Zofran] 8 mg PO Q6H PRN 04/18/16 [History] Ondansetron [Zofran] 4 mg IM Q6H PRN 04/18/16 [History] Pantoprazole Sodium [Protonix] 20 mg PO DAILY@0600 04/18/16 [History] Sucralfate [Carafate] 1 gm PO [facility] 04/18/16 [History] Thiamine [Vitamin B-1] 100 mg PO DAILY 04/18/16 [History] Trimethobenzamide [Tigan] 200 mg IM Q6HR PRN 04/18/16 [History] Trimethobenzamide [Tigan] 300 mg PO Q6H PRN 04/18/16 [History] busPIRone HCl [Buspar] 10 mg PO TID PRN 04/18/16 [History] cloNIDine HCL [Catapres] 0.1 mg PO BID@0600,1730 04/18/16 [History] traZODone HCL 300 mg PO HS@2200 04/18/16 [History] Insulin Glargine [Lantus] 8 unit SQ QAM #1 vial 04/23/16 [Rx] Follow up Appointment(s)/Referral(s): None,Stated [Primary Care Provider] - 1-2 days Prashant Kaiser MD [STAFF PHYSICIAN] - 04/25/16 Activity/Diet/Wound Care/Special Instructions: Patient is to be transferred back to [facility]. Patient has been advised to stay away from all egg products needs to be diligent about awareness of what is in the food. Additionally patient was given a prescription and instructed on taking Lantus. Regular Insulin secondary to patient feeling she is ALLERGIC to regular insulin Discharge Disposition: OTHER INSTITUTION NOT DEFINED
--- NOTE | 2016-04-23 21:42 | HP ---
DATE OF ADMISSION: 04/23/2016 CHIEF COMPLAINT: Another allergic reaction. HISTORY OF PRESENT ILLNESS: This lady was just admitted back to [facility] and came right back again. She has been ALLERGIC TO EGGS. She is now wondering if it is her insulin; after she takes her regular insulin she seems to break out. REVIEW OF SYSTEMS: Otherwise unchanged. Past medical history, family history, and personal and social histories are unchanged. PHYSICAL EXAMINATION: Blood pressure 130/88 with a pulse of 83, respiration 29. She is afebrile. In general she appeared to be well developed, well nourished, in no acute distress. Skin color is normal. Skin is warm and dry. Lymph nodes are not enlarged. Head, ears, eyes, nose, mouth and throat were normal. There is no sign of angioneurotic edema now. Chest is clear. Cardiac exam is normal. ABDOMEN: Soft, nontender. Extremities are normal. IMPRESSION: Recurrent episodes of angioneurotic edema, possibly due to egg allergy or regular insulin (?). PLAN: Consider changing insulin. Probably back to [facility] later today.
--- NOTE | 2016-04-23 21:44 | DS ---
DATE OF ADMISSION: 04/23/2016 DATE OF DISCHARGE: 04/23/2016 CHIEF COMPLAINT: Allergic reaction. HISTORY OF PRESENT ILLNESS: This lady is doing well. She has had no trouble since she has come in. She probably can go back to [facility] today, and this will be arranged by the nurse practitioner.
[2016-04-23] MEDS ORDERED: traZODone HCL 100 MG TAB PO SCH (22:00)
[2016-04-24] MEDS ORDERED: methylPREDNISolone 4 MG TAB TAPER PO SCH (09:30)
== END 2016-04-23 14:10 | disposition other institution (70) ==
LOC: EC 23:16 → 5MS5E 04-23 01:14
PROVIDERS: ADMIT Family Medicine; ATTEND Family Medicine
DX: T78.3XXA Angioneurotic edema, initial encounter (principal); Z91.012 Allergy to eggs; F32.9 Major depressive disorder, single episode, unspecified; Z79.4 Long term (current) use of insulin; I10 Essential (primary) hypertension; E11.9 Type 2 diabetes mellitus without complications; Z79.899 Other long term (current) drug therapy; Z88.2 Allergy status to sulfonamides; Z88.8 Allergy status to other drugs, medicaments and biological substances; Z88.1 Allergy status to other antibiotic agents; Z91.013 Allergy to seafood; Z86.14 Personal history of Methicillin resistant Staphylococcus aureus infection; Z79.891 Long term (current) use of opiate analgesic
CPT/HCPCS: 94760; 96374; 96375; 96361 ×2; 99285; G0378; J1200 ×2; J2930; 96376